=== PATIENT | female | born 1985 | race Caucasian/White ===

== ENCOUNTER 2017-04-23 09:18 | Emergency (ER) | payer MEDICAID ==
[~2017-04-23] VITALS: Ht 152.4 cm; Wt 78.7 kg
[~2017-04-23 09:18] MED LIST: AMO500 PO; APAP/HYDROCODON1 T13 PO; BIA500 PO; COL100 PO; FAMOTIDINE20 MG PO; LAC PO; LANSOPRAZOLE30 M2; LEVAQUIN750 MG PO; MACROBID100 MG PO; NORCO1 TA2 PO; PRI20 PO; TRAMADOL HCL50 MG PO; ZES10 PO
[2017-04-23 10:01] LABS: CALCIUM 8.4 mg/dL (8.5-10.1); CARBON DIOXIDE 24.7 mmol/L (21-32); CHLORIDE SERUM 105 mmol/L (98-107); CREATININE SERUM 0.7 mg/dL (0.6-1.0); GFR1 > 60 mL/min; GLUCOSE SERUM 107 mg/dL (74-106); POTASSIUM SERUM 3.6 mmol/L (3.5-5.1); SODIUM SERUM 136 mmol/L (136-145)
[2017-04-23 10:04] LABS: UA SPECIFIC GRAVITY 1.025 (1.005-1.035); microscopic required? YES; urine erythrocyte TRACE (NEGATIVE)
[2017-04-23 10:05] LABS: ALBUMIN 3.4 g/dL (3.4-5.0); ALKALINE PHOSPHATASE 72 U/L (46-116); ALT/SGPT 56 U/L (14-59); AMYLASE 77 U/L (25-115); AST/SGOT 31 U/L (15-37); BILIRUBIN TOTAL 0.4 mg/dL (0.20-1.00); LIPASE 95 IU/L (73-393); TOTAL PROTEIN, SERUM 8.1 g/dL (6.4-8.2)
[2017-04-23 10:41] LABS: BASOPHIL % 0.4 % (0-2); RED CELL DISTRIBUTION WIDTH 13.8 % (11.5-14.5)
[2017-04-23 11:09] LABS: PLATELET COUNT 321 x10^3mcL (130-400)
[2017-04-23 12:14] VITALS: BP 147/73
== END 2017-04-23 12:14 | disposition home or self-care (01) ==
LOC: ED 09:18
PROVIDERS: Emergency Medicine
DX: K52.9 Noninfective gastroenteritis and colitis, unspecified (principal); I10 Essential (primary) hypertension
CPT/HCPCS: 83880; J1885; J2405; J7030

== ENCOUNTER 2017-11-22 14:27 | Emergency (ER) | payer MEDICAID ==
[~2017-11-22] VITALS: Ht 154.9 cm; Wt 79.0 kg
[2017-11-22 14:38] VITALS: Ht 154.9 cm; Wt 79.0 kg
[2017-11-22 16:12] VITALS: BP 129/89
== END 2017-11-22 16:12 | disposition home or self-care (01) ==
LOC: ED 14:27
DX: I16.0 Hypertensive urgency (principal); R51 Headache
CPT/HCPCS: 82962; J1885

== ENCOUNTER 2018-06-12 12:35 | Emergency (ER) | payer MEDICAID ==
[~2018-06-12] VITALS: Ht 152.4 cm; Wt 74.8 kg
[2018-06-12 12:41] VITALS: BP 135/97; Ht 152.4 cm; Wt 74.8 kg
== END 2018-06-12 15:42 | disposition home or self-care (01) ==
LOC: ED 12:35
DX: S93.402A Sprain of unspecified ligament of left ankle, initial encounter (principal); S83.92XA Sprain of unspecified site of left knee, initial encounter; I10 Essential (primary) hypertension; M25.552 Pain in left hip; Z90.49 Acquired absence of other specified parts of digestive tract; X50.1XXA Overexertion from prolonged static or awkward postures, initial encounter; Y92.89 Other specified places as the place of occurrence of the external cause; Y93.89 Activity, other specified; Y99.8 Other external cause status

== ENCOUNTER 2018-11-22 10:39 | Emergency (ER) | payer MEDICAID ==
[~2018-11-22] VITALS: Ht 160 cm; Wt 80.3 kg
[2018-11-22 11:01] VITALS: Ht 160 cm; Wt 80.3 kg
[2018-11-22 12:03] VITALS: BP 159/91
== END 2018-11-22 12:03 | disposition home or self-care (01) ==
LOC: ED 10:39
DX: N39.0 Urinary tract infection, site not specified (principal); N12 Tubulo-interstitial nephritis, not specified as acute or chronic; I10 Essential (primary) hypertension; Z90.49 Acquired absence of other specified parts of digestive tract

== ENCOUNTER 2019-06-21 21:48 | Emergency (ER) | payer MEDICAID ==
[~2019-06-21] VITALS: Ht 152.4 cm; Wt 77.1 kg
[2019-06-21 21:52] VITALS: Ht 152.4 cm; Wt 77.1 kg
[2019-06-21 23:06] LABS: BASOPHIL % 0.3 % (0-2); PLATELET COUNT 311 x10^3mcL (130-400); RED CELL DISTRIBUTION WIDTH 13.7 % (11.5-14.5)
[2019-06-21 23:22] LABS: CALCIUM 8.7 mg/dL (8.5-10.1); CARBON DIOXIDE 28.8 mmol/L (21-32); CHLORIDE SERUM 103 mmol/L (98-107); CREATININE SERUM 0.8 mg/dL (0.6-1.0); GFR1 > 60 mL/min; GLUCOSE SERUM 126 mg/dL (74-106); POTASSIUM SERUM 3.8 mmol/L (3.5-5.1); SODIUM SERUM 139 mmol/L (136-145)
[2019-06-21 23:26] LABS: ALBUMIN 3.3 g/dL (3.4-5.0); ALKALINE PHOSPHATASE 75 U/L (46-116); ALT/SGPT 26 U/L (14-59); AMYLASE 68 U/L (25-115); AST/SGOT 13 U/L (15-37); BILIRUBIN TOTAL 0.4 mg/dL (0.20-1.00); LIPASE 114 IU/L (73-393); TOTAL PROTEIN, SERUM 7.4 g/dL (6.4-8.2)
[2019-06-22 00:03] LABS: UA SPECIFIC GRAVITY >=1.030 (1.005-1.035); microscopic required? YES; urine erythrocyte TRACE (NEGATIVE)
[2019-06-22 02:04] VITALS: BP 98/68
== END 2019-06-22 02:04 | disposition home or self-care (01) ==
LOC: ED 21:48
PROVIDERS: Emergency Medicine
DX: K29.70 Gastritis, unspecified, without bleeding (principal); I10 Essential (primary) hypertension; Z98.890 Other specified postprocedural states; Z90.49 Acquired absence of other specified parts of digestive tract
CPT/HCPCS: J2270; J2405

== ENCOUNTER 2019-10-22 21:50 | Emergency (ER) | payer MEDICAID ==
[~2019-10-22] VITALS: Ht 152.4 cm; Wt 81.8 kg
[2019-10-22 22:14] VITALS: Ht 152.4 cm; Wt 81.8 kg
[2019-10-22 23:08] LABS: microscopic required? NO
[2019-10-22 23:24] LABS: BASOPHIL % 0.4 % (0-2); PLATELET COUNT 310 x10^3mcL (130-400); RED CELL DISTRIBUTION WIDTH 13.3 % (11.5-14.5)
[2019-10-22 23:26] LABS: CALCIUM 8.2 mg/dL (8.5-10.1); CARBON DIOXIDE 26.3 mmol/L (21-32); CHLORIDE SERUM 105 mmol/L (98-107); CREATININE SERUM 0.6 mg/dL (0.6-1.0); GFR1 > 60 mL/min; GLUCOSE SERUM 115 mg/dL (74-106); POTASSIUM SERUM 3.5 mmol/L (3.5-5.1); SODIUM SERUM 141 mmol/L (136-145)
[2019-10-22 23:28] LABS: urine erythrocyte NEGATIVE (NEGATIVE)
[2019-10-22 23:31] LABS: ALKALINE PHOSPHATASE 78 U/L (46-116); ALT/SGPT 33 U/L (14-59); AST/SGOT 14 U/L (15-37); BILIRUBIN TOTAL 0.2 mg/dL (0.20-1.00); TOTAL PROTEIN, SERUM 7.5 g/dL (6.4-8.2)
[2019-10-22 23:34] LABS: ALBUMIN 3.1 g/dL (3.4-5.0)
[2019-10-23 00:31] VITALS: BP 134/61
== END 2019-10-23 00:31 | disposition home or self-care (01) ==
LOC: ED 21:50
PROVIDERS: Emergency Medicine
DX: R07.89 Other chest pain (principal); I10 Essential (primary) hypertension; Z90.49 Acquired absence of other specified parts of digestive tract; Z98.890 Other specified postprocedural states
CPT/HCPCS: J2765; J7030; Q0092